=== PATIENT | female | born 1995 | race Caucasian/White ===

== ENCOUNTER 2016-12-11 23:42 | Emergency (ER) | payer MEDICAID, OTHER ==
[2016-12-12] MEDS ORDERED: NS 0.9% 1000 ML* 1,000 ML IV ONE (01:15)
[2016-12-12 01:42] LABS: Hematocrit 40 % (35-47); Hemoglobin 13.7 g/dl (12.0-16.0); Mean Corpuscular HGB Conc 34 g/dl (31-36); Mean Corpuscular Hemoglobin 30 pg (27-31); Mean Corpuscular Volume 88 fL (80-97); Mean Platelet Volume 8 um3 (7.4-10.4); Red Blood Count 4.55 10^6/ul (4.0-5.4); Red Cell Distribution Width 13 % (10.5-15); White Blood Count 8.5 10^3/ul (3.5-10.8)
[2016-12-12 01:54] LABS: ALT 11 U/L (7-52); AST 16 U/L (13-39); Albumin 4.8 g/dL (3.2-5.2); Alkaline Phosphatase 38 U/L (34-104); Anion Gap 10 mmol/L (2-11); BUN/Creatinine Ratio 15.3 (8-20); Blood Urea Nitrogen 11 mg/dL (6-24); C Reactive Protein < 1.00 mg/L (< 5.00); CO2 Carbon Dioxide 25 mmol/L (22-32); Calcium 9.9 mg/dL (8.6-10.3); Chloride 103 mmol/L (101-111); EGFR African American 131.5 (>60); EGFR Non-African American 102.3 (>60); Globulin 2.4 g/dL (2-4); Glucose 85 mg/dL (70-100); Lipase 18 U/L (11.0-82.0); Potassium 3.6 mmol/L (3.5-5.0); Sodium 138 mmol/L (133-145); Total Protein 7.2 g/dL (6.4-8.9)
[2016-12-12 02:00] LABS: Urine Bilirubin Negative (Negative); Urine Glucose Negative (Negative); Urine Nitrite Negative (Negative)
[2016-12-12] MEDS ORDERED: Iohexol 300* (CONTRAST) 10 ML SDV IV ONE (02:04)
[2016-12-12] MEDS ORDERED: Ibuprofen TAB* 600 MG PO ONE (04:00)
--- NOTE | 2016-12-12 04:19 | ED ---
Raúl Rajput Aidan, scribed for Jaime Connors on 12/12/16 at 0118 . GI/ HPI - HPI Summary HPI Summary: 21 y/o female presents to the ED with a complaint of acute, constant, moderate rectal pain and hematochezia (streaks of blood in stool). Producing bowel movement aggravates her rectal pain. She has some mild abdominal pain as well. - History of Current Complaint Chief Complaint: EDRectalPain Time Seen by Provider: 12/12/16 01:00 Stated Complaint: BLOODY STOOL X2 DAYS Hx Obtained From: Patient Onset/Duration: Started Days Ago, Still Present Timing: Constant, Lasting Days Severity: Moderate Current Severity: Moderate Number of Pads per Day: 0 - Pt is not on her period Number of Pads per Hour: 0 - Pt is not currently on her period Pain Intensity: 0 Location of Pain: Rectal, Anal Pain Characteristics: Unable to describe - not described Associated Signs and Symptoms: Positive: Rectal Pain, Abdominal Pain, Other: - hematochezia Aggravating Factor(s): Bowel Movement Alleviating Factor(s): Nothing - unknown - Allergy/Home Medications Allergies/Adverse Reactions: Allergies Allergy/AdvReac Type Severity Reaction Status Date / Time No Known Allergies Allergy Verified 12/11/16 23:50 PMH/Surg Hx/FS Hx/Imm Hx Previously Healthy: Yes Infectious Disease History: No Infectious Disease History: Denies: Traveled Outside the [place] in Last 30 Days - Family History Known Family History: Positive: Hypertension - Social History Occupation: Employed Full-time Lives: Alone Alcohol Use: None Substance Use Type: Reports: None Smoking Status (MU): Never Smoked Tobacco Review of Systems Constitutional: Negative Eyes: Negative ENT: Negative Cardiovascular: Negative Respiratory: Negative Gastrointestinal: Other - rectal pain, hematochezia Positive: Abdominal Pain Genitourinary: Negative Musculoskeletal: Negative Skin: Negative Neurological: Negative Psychological: Normal All Other Systems Reviewed And Are Negative: Yes Physical Exam Triage Information Reviewed: Yes Vital Signs On Initial Exam: Initial Vitals Temp Pulse Resp BP Pulse Ox 98.6 F 68 16 124/82 100 12/11/16 23:46 12/11/16 23:46 12/11/16 23:46 12/11/16 23:46 12/11/16 23:46 Vital Signs Reviewed: Yes Appearance: Positive: Well-Appearing, No Pain Distress Skin: Positive: Warm, Skin Color Reflects Adequate Perfusion, Dry Head/Face: Positive: Normal Head/Face Inspection Eyes: Positive: EOMI, MARYCRUZ ENT: Positive: Normal ENT inspection Neck: Positive: Supple, Nontender Respiratory/Lung Sounds: Positive: Clear to Auscultation, Breath Sounds Present Cardiovascular: Positive: RRR, Pulses are Symmetrical in both Upper and Lower Extremities Abdomen Description: Positive: Soft. Negative: Nontender - tenderness in LLQ Bowel Sounds: Positive: Present Musculoskeletal: Positive: Strength/ROM Intact Neurological: Positive: Sensory/Motor Intact, Alert, Oriented to Person Place, Time Psychiatric: Positive: Affect/Mood Appropriate AVPU Assessment: Alert Diagnostics - Vital Signs Vital Signs Temp Pulse Resp BP Pulse Ox 12/11/16 23:46 98.6 F 68 16 124/82 100 - Laboratory Result Diagrams: 12/12/16 01:30 12/12/16 01:30 Lab Statement: Any lab studies that have been ordered have been reviewed, and results considered in the medical decision making process. - CT ABD/PEL CT CT Interpretation: No Acute Changes - IMPRESSION: NO GALLSTONES, NO EVIDENCE OF RENAL CALCULI OR OBSTRUCTIVE UROPATHY, NORMAL APPENDIX CT Interpretation Completed By: Radiologist GIGU Course/Dx - Course Course Of Treatment: This is a 21 y/o female with a complaint of rectal pain and hematochezia. Her rectal pain is aggravated by making bowel movements. Though the CT scan was negative, it did indicate questionable internal hemorrhage. - Diagnoses Provider Diagnoses: Rectal pain Discharge - Discharge Plan Condition: Stable Disposition: HOME Discharge Disposition Comment: Please follow up with your primary care physician within 3 days. Patient Education Materials: Rectal Pain (ED) The documentation as recorded by the Raúl yusuf Aidan accurately reflects the service I personally performed and the decisions made by Waylon goins Emmanuel.
[2016-12-12 04:40] VITALS: BP 97/74
--- NOTE | 2016-12-12 08:25 | RAD ---
INDICATION: Abdominal pain, evaluate for diverticulitis. COMPARISON: There are no prior studies available for comparison. TECHNIQUE: A CT scan of the abdomen and pelvis was performed with intravenous and without oral contrast following intravenous injection of 57 ml of Omnipaque 300 nonionic contrast. Contiguous axial sections were obtained from the lung bases through the symphysis pubis. Images were reconstructed in the coronal and sagittal planes. FINDINGS: The lung bases are clear. No pleural effusion is present. The liver and spleen are within normal limits in size without significant focal abnormality. No calcified gallstones are seen. The pancreas appears to be within normal limits in size. There is decreased density in the proximal portion of the portal vein which appears to be secondary to unopacified blood in the mesenteric veins. The kidneys and adrenal glands are normal in size. No hydronephrosis is seen. No significant focal renal abnormality is seen. The aorta is normal in caliber and demonstrates homogeneous contrast opacification. No significant enlarged retroperitoneal lymph nodes are seen. The stomach, small and large bowel appear nondistended. The appendix is within normal limits. There is no evidence for diverticulitis or colitis. The uterus is retroverted and normal in size. No free intraperitoneal air is seen. There is a trace amount of free intraperitoneal fluid in the cul-de-sac. No significant focal osseous abnormality is seen. IMPRESSION: NO EVIDENCE FOR ACUTE FINDING OR CAUSE FOR THE PATIENT'S ABDOMINAL PAIN IS SEEN.
== END 2016-12-12 04:25 | disposition home or self-care (01) ==
LOC: ED 23:42
DX: K62.89 Other specified diseases of anus and rectum (principal); K92.1 Melena
CPT/HCPCS: 36415; 74177; 80053; 81003; 83690; 84702; 85025; 86140; 96360; 99283; A9270-GY; Q9967

== ENCOUNTER 2018-06-17 09:19 | Emergency (ER) | payer MEDICAID, OTHER ==
[2018-06-17 10:15] VITALS: BP 107/65
--- NOTE | 2018-06-17 10:42 | UC ---
Abdominal Pain Female HPI - HPI Summary HPI Summary: The patient is a 23-year-old female with a 3 to four-day history of diarrhea. She has had 5-8 episodes of diarrhea a day. She has been tolerating food and liquids without difficulty. She has had some mild nausea but no vomiting. She has had a mild headache and has felt feverish at times. She has had some tenesmus. She states that yesterday she had a positive urine test. She thinks that she is about 8 weeks along. She has had no recent travel outside of the country. She was on a course of antibiotics a month or 2 ago for a paronychia. She is taking Keflex for that. - History of Current Complaint Chief Complaint: UCGI Stated Complaint: DIARRHEA, FEVER Time Seen by Provider: 06/17/18 10:20 Hx Obtained From: Patient Hx Last Menstrual Period: 04/27/18 Onset/Duration: Gradual Onset, Lasting Days Timing: Constant Severity Initially: Mild Severity Currently: Moderate Pain Intensity: 0 - 5 at times Pain Scale Used: 0-10 Numeric Location: Diffuse Character: Cramping Aggravating Factor(s): Other: - cramps a few minutes before and after episodes of diarrhea Associated Signs and Symptoms: Positive: Fever - Dejuan, Diarrhea Allergies/Adverse Reactions: Allergies Allergy/AdvReac Type Severity Reaction Status Date / Time No Known Allergies Allergy Verified 06/17/18 10:15 Home Medications: Home Medications NK [No Home Medications Reported] 06/17/18 [History Confirmed 06/17/18] PMH/Surg Hx/FS Hx/Imm Hx Previously Healthy: Yes - Surgical History Surgical History: Yes Surgery Procedure, Year, and Place: L leg varicose vein removed - Family History Known Family History: Positive: Hypertension - Social History Alcohol Use: None Substance Use Type: None Smoking Status (MU): Never Smoked Tobacco Review of Systems Constitutional: Negative Skin: Negative Eyes: Negative ENT: Negative Respiratory: Negative Cardiovascular: Negative Gastrointestinal: Abdominal Pain, Diarrhea Genitourinary: Negative Motor: Negative Neurovascular: Negative Musculoskeletal: Negative Neurological: Negative Psychological: Negative Is Patient Immunocompromised?: No All Other Systems Reviewed And Are Negative: Yes Physical Exam Triage Information Reviewed: Yes Appearance: Well-Appearing, No Pain Distress, Well-Nourished Vital Signs: Initial Vital Signs Temp 98.8 F 06/17/18 10:08 Pulse 92 06/17/18 10:08 Resp 14 06/17/18 10:08 BP 107/65 06/17/18 10:08 Pulse Ox 100 06/17/18 10:08 Vital Signs Reviewed: Yes Eyes: Positive: Conjunctiva Clear ENT: Positive: Hearing grossly normal, Pharynx normal Neck: Positive: Supple, Nontender, No Lymphadenopathy Respiratory: Positive: Lungs clear, Normal breath sounds, No respiratory distress, No accessory muscle use Cardiovascular: Positive: RRR, No Murmur Abdomen Description: Positive: Nontender, Soft Musculoskeletal: Positive: ROM Intact, No Edema Neurological: Positive: Alert Psychological Exam: Normal Skin Exam: Normal Diagnostics - Laboratory Diagnostic Studies [place] [facility] [place] UA : 1.010, -ketones Abd Pain Female Course/Dx - Course Course Of Treatment: has first OB appt set up already - Differential Dx/Diagnosis Provider Diagnoses: acute diarrhea. Discharge - Sign-Out/Discharge Documenting (check all that apply): Patient Departure - Discharge Plan Condition: Stable Disposition: HOME Patient Education Materials: (ED), Acute Diarrhea (ED) Referrals: No Primary Care Phys,NOPCP [Primary Care Provider] - Additional Instructions: bring in diarrhea for studies to ER or recheck here for new or worsening symptoms recheck in 4 days if not better you may take tylenol I suggest you avoid OTC antidiarrheal meds I suggest you start taking a vit with folate (folic acid) one daily - Billing Disposition and Condition Condition: STABLE Disposition: Home
--- NOTE | 2018-06-19 08:49 | UC ---
- Progress Note Progress Note: neg C dif no change 06/19/2018 849 Discharge - Sign-Out/Discharge Documenting (check all that apply): Patient Departure - Discharge Plan Condition: Stable Disposition: HOME Patient Education Materials: (ED), Acute Diarrhea (ED) Referrals: No Primary Care Phys,NOPCP [Primary Care Provider] - Additional Instructions: bring in diarrhea for studies to ER or recheck here for new or worsening symptoms recheck in 4 days if not better you may take tylenol I suggest you avoid OTC antidiarrheal meds I suggest you start taking a vit with folate (folic acid) one daily - Billing Disposition and Condition Condition: STABLE Disposition: Home
== END 2018-06-17 11:25 | disposition home or self-care (01) ==
LOC: UCEAST 09:19
DX: O99.619 Diseases of the digestive system complicating pregnancy, unspecified trimester (principal); R19.7 Diarrhea, unspecified; K92.89 Other specified diseases of the digestive system
CPT/HCPCS: 81003; 84702; 99211; G0463